=== PATIENT | male | born 1975 ===

== ENCOUNTER 2016-09-21 00:23 | Emergency (ER) | payer SELFPAY ==
[2016-09-21 00:52] VITALS: RESP 18
[2016-09-21] MEDS ORDERED: Sodium Chloride 0.9% 1,000 ML IV ONE ×2 (01:16→02:08)
--- NOTE | 2016-09-21 01:23 | C.PDOC ---
History Of Present Illness 41 year old male with no prior history of diabetes, presents to the ER with c/o dizziness and lightheadedness for the past 2 days. Pt blood sugar was measured at home and was approximately 500 mg/dl. Pt denies pain, fever, chills, nausea, vomiting, or any other complaints. Time Seen by Provider: 09/21/16 01:12 Chief Complaint (Nursing): Dizziness/Lightheaded History Per: Patient History/Exam Limitations: no limitations Onset/Duration Of Symptoms: Days Current Symptoms Are (Timing): Still Present Seizure Or Post-ictal Symptoms: None Severity: Mild Past Medical History Reviewed: Historical Data, Nursing Documentation, Vital Signs Vital Signs: Last Vital Signs Temp 98.3 F 09/21/16 00:45 Pulse 68 09/21/16 00:45 Resp 18 09/21/16 00:45 BP 153/88 H 09/21/16 00:45 Pulse Ox 97 09/21/16 03:44 Family History: States: Unknown Family Hx - Social History Hx Alcohol Use: Yes Hx Substance Use: No - Immunization History Hx Tetanus Toxoid Vaccination: No Hx Influenza Vaccination: No Review Of Systems Except As Marked, All Systems Reviewed And Found Negative. Constitutional: Negative for: Fever, Chills, Weakness, Other (Pain) Cardiovascular: Positive for: Light Headedness Gastrointestinal: Negative for: Nausea, Vomiting Neurological: Positive for: Dizziness Physical Exam - Physical Exam Appears: Non-toxic, No Acute Distress Skin: Warm, Dry Head: Atraumatic, Normacephalic Eye(s): bilateral: Normal Inspection Oral Mucosa: Moist Neck: Normal ROM, Supple Chest: Symmetrical Cardiovascular: Rhythm Regular, No Murmur Respiratory: Normal Breath Sounds, No Accessory Muscle Use, No Rales, No Rhonchi , No Wheezing Gastrointestinal/Abdominal: Soft, No Tenderness Extremity: Normal ROM Neurological/Psych: Oriented x3, Normal Speech, Normal Cognition Gait: Steady ED Course And Treatment - Laboratory Results Result Diagrams: 09/21/16 01:53 09/21/16 01:53 ECG: Interpreted By Me, Viewed By Me ECG Rhythm: Sinus Rhythm (Normal sinus rhythm of 60) ECG Interpretation: Normal Interpretation Of ECG: Normal sinus rhythm of 60 O2 Sat by Pulse Oximetry: 97 (Room air) Pulse Ox Interpretation: Normal Medical Decision Making Medical Decision Making: r/o dka Plan: -Labs -IV fluids -CXR -EKG -VBG shock panel -reassess 335: pt reassesed. no e/o of dka. all symptoms resolved. no e/o of dka. pt advised importance of outpt f/u and diet control. return precautions advised Disposition - Disposition Referrals: Non [facility] Provider, [Primary Care Provider] - [facility] [Outside] [facility] [Outside] [facility] [Outside] Disposition: HOME/ ROUTINE Disposition Time: 03:36 Condition: STABLE Additional Instructions: please follow up with your doctor. return to er with worsening symptoms or concerns. Prescriptions: metFORMIN [glucOPHAGE] 500 mg PO BID #14 tab Instructions: Diabetic Hyperglycemia (ED), Hyperglycemia, Non-Diabetic (ED) Print Language: ETHIOPIAN - Clinical Impression Clinical Impression: Hyperglycemia - Scribe Statement The provider has reviewed the documentation as recorded by the Scribe [employer] [employer] All medical record entries made by the Scribe were at my direction and personally dictated by me. I have reviewed the chart and agree that the record accurately reflects my personal performance of the history, physical exam, medical decision making, and the department course for this patient. I have also personally directed, reviewed, and agree with the discharge instructions and disposition.
[2016-09-21 01:56] LABS: BASO # 0.1 K/uL (0.0-0.2); EOS # 0.4 K/uL (0.0-0.7); EOS % 4.7 % (0.0-4.0); LYMPH # 3.3 K/uL (1.0-4.3); LYMPH % 37.9 % (20.0-40.0); MEAN CELL VOLUME 86.2 fL (80.0-94.0); MEAN CORPUSCULAR HEMOGLOBIN 28.6 pg (27.0-31.0); MEAN CORPUSCULAR HGB CONC 33.2 g/dL (33.0-37.0); MEAN PLATELET VOLUME 11.4 fL (7.2-11.7); MONO # 0.6 K/uL (0.0-0.8); MONO % 6.5 % (0.0-10.0); NRBC % 0.1 % (0.0-2.0); RED CELL DISTRIBUTION WIDTH 13.1 % (11.5-14.5); WHITE BLOOD COUNT 8.8 K/uL (4.8-10.8)
[2016-09-21 01:58] LABS: VENOUS BLOOD GAS BASE EXCESS 1.2 mmol/L (0.0-2.0); VENOUS BLOOD GAS PCO2 44 mmHg (40-60); VENOUS BLOOD PH 7.39 (7.32-7.43)
[2016-09-21 02:06] LABS: CHLORIDE 98 mmol/L (98-107); POTASSIUM 3.7 mmol/L (3.6-5.2); SODIUM 136 mmol/L (132-148)
[2016-09-21 02:08] LABS: BILIRUBIN,TOTAL 0.4 mg/dL (0.2-1.3); GFR AFRICAN-AMERICAN > 60
[2016-09-21 02:09] LABS: ALB/GLOB RATIO 1.1 (1.0-2.1); ALKALINE PHOSPHATASE 137 U/L (38-126); ALT/SGPT 48 U/L (21-72); AST/SGOT 23 U/L (17-59); BLOOD UREA NITROGEN 11 mg/dL (9-20); CARBON DIOXIDE 26 mmol/L (22-30); TOTAL PROTEIN 7.7 g/dL (6.3-8.3)
[2016-09-21 02:10] LABS: CALCIUM 8.6 mg/dl (8.6-10.4)
[2016-09-21 02:14] LABS: GLUCOSE,RANDOM 452 mg/dL (75-110)
[2016-09-21] MEDS ORDERED: (Novolin R) Insulin Human Regular 100 units/ml vial IV STA (02:16)
[2016-09-21 02:24] LABS: RBC URINE < 1 /hpf (0-3); URINE BILIRUBIN NEGATIVE (NEGATIVE); URINE BLOOD NEGATIVE (NEGATIVE); URINE COLOR Straw (YELLOW); URINE GLUCOSE (UA) 3+ mg/dL (Normal); URINE KETONE NEGATIVE (NEGATIVE); URINE LEUKOCYTE ESTERASE NEG Leu/uL (Negative); URINE PROTEIN NEGATIVE (NEGATIVE); URINE UROBILINOGEN NORMAL mg/dL (0.2-1.0)
[2016-09-21] MEDS ORDERED: Sodium Chloride 0.9% 2,000 ML ONE (02:25)
[2016-09-21] MEDS ORDERED: (Novolin R) Insulin Human Regular 100 units/ml vial ONE (02:26)
[2016-09-21 03:46] VITALS: BP 142/80; PULSE 70; TEMP 98.2; O2SAT 99
--- NOTE | 2016-09-21 10:13 | RAD ---
HISTORY: chest pain COMPARISON: None available. TECHNIQUE: Chest, one view. FINDINGS: Examination limited by habitus and hypoinflation. LUNGS: No focal consolidation. Please note that chest x-ray has limited sensitivity for the detection of pulmonary masses. PLEURA: No significant pleural effusion identified. No definite pneumothorax . CARDIOVASCULAR: The cardiomediastinal silhouette appears within normal limits of size. OSSEOUS STRUCTURES: No acute osseous abnormality identified. VISUALIZED UPPER ABDOMEN: Unremarkable. OTHER FINDINGS: None. IMPRESSION: No focal consolidation, significant pleural effusion, or definite pneumothorax identified.
--- NOTE | 2016-09-21 14:07 | CARD ---
APPROVED REPORT EKG Measurement Heart [id number] <Conclusion> Normal sinus rhythm Left axis deviation Abnormal ECG
== END 2016-09-21 03:46 | disposition home or self-care (01) ==
LOC: C.ER 00:23 → SUPCPDRO 00:23 → C.ER 03:46
DX: E11.65 Type 2 diabetes mellitus with hyperglycemia (principal)
CPT/HCPCS: 71010; 80053; 81001; 82009; 82803; 82948; 83930; 84484; 85025; 85610; 85730; 93005; 96361; 96374; 99285; J7040